=== PATIENT | male | born 1995 | race Caucasian/White ===

== ENCOUNTER 2017-07-31 11:25 | Emergency (ER) | payer OTHER ==
--- NOTE | 2017-07-31 11:53 | EDPHY ---
H & P Smoking Status: Never smoked Time Seen by Provider: 07/31/17 11:40 HPI/ROS: CHIEF COMPLAINT: Right wrist pain HISTORY OF PRESENT ILLNESS: 21 year old male, right-hand dominant, up-to-date tetanus states that last evening while skateboarding he fell on outstretched right hand. Complaining of reproducible pain to his right wrist ever since. No paresthesia. No proximal pain. PHYSICAL EXAM (Prior to examination, patient consented to physical exam, hands were washed and my usual and customary physical exam procedures followed) 1) GENERAL: Well-developed, well-nourished, alert and oriented. Appears to be in no acute distress. 2) HEAD: Normocephalic 3) HEENT: Pupils equal, round, reactive to light bilaterally. 4) LUNGS: Breathing comfortably. 5) MUSCULOSKELETAL: Soft compartments. Normal coloration. 6) SKIN: Abrasion palmar aspect. 7) VASCULAR: pulses and cap refill present are brisk 8) NEUROLOGIC: Unable to assess radial ulnar median nerve function as patient complains of pain with range of motion of his fingers. DIFFERENTIAL DIAGNOSIS: in no particular order including but not limited to fracture, sprain, compartment syndrome Procedure: Splint A volar Velcro splint was applied by ER missile and missile checkout technician. After application of the splint I returned and re-examined the patient. The splint was adequately immobilizing the joint and distal to the splint the patient's circulation and sensation were intact. Patient shows no signs of compartment syndrome. Was given orthopedic precautions. (Kemar John Zoila) Constitutional: Initial Vital Signs Temperature (C) 36.8 C 07/31/17 11:32 Heart Rate 75 07/31/17 11:32 Respiratory Rate 16 07/31/17 11:32 Blood Pressure 135/82 H 07/31/17 11:32 O2 Sat (%) 98 07/31/17 11:32 O2 Delivery Mode Room Air Allergies/Adverse Reactions: No Known Allergies Allergy (Unverified 07/31/17 11:32) Home Medications: Medication Instructions Recorded NK [No Known Home Meds] 07/31/17 MDM/Departure - MDM Imaging Results: Imaging Impressions Wrist X-Ray 07/31/17 11:35 Impression: Normal. If there is a high clinical concern regarding an occult fracture, conservative management and short-term repeat radiographic follow-up in 7-14 days is suggested. Findings were discussed with Ramses John PA-C at 12:19, on 07/31/2017, who indicated that the patient's point of maximal tenderness was not over the anatomic snuff box, but moreso over the central aspect of the wrist. images reviewed by myself (Kemar John) ED Course/Re-evaluation: Care of patient under supervision of secondary supervising physician Dr Barahona . (Kemar John) I did not see this patient while he was in the emergency department. However his care was discussed with the PA while the patient was in the department. I agree with treatment plan and management. I a.m. the secondary supervising position (Eliu Barahona) - Depart Disposition: Home, Routine, Self-Care Clinical Impression: Right wrist sprain Qualifiers: Encounter type: initial encounter Qualified Code(s): S63.501A - Unspecified sprain of right wrist, initial encounter Abrasion of right hand Qualifiers: Encounter type: initial encounter Qualified Code(s): S60.511A - Abrasion of right hand, initial encounter Condition: Good Instructions: Abrasion (ED), Wrist Sprain (ED) Additional Instructions: Return to the ER immediately if you experience discoloration, have worsening pain, numbness, tingling, or any other symptoms that concern you. If you received x-rays in the emergency department today, be advised, that ligamentous , tendon, muscular, and other non-bony injury cannot be fully ruled out. Try to keep your affected extremity elevated above the level of your chest, and keep cold packs on the affected area, for the next 48 hours. Referrals: Nadya Win MD [Medical Doctor] - 2-3 days, call for appt. (Dr. Win is an orthopedic doctor)
[2017-07-31 13:00] VITALS: BP 125/75; PULSE 60; RESP 12; TEMP 97.9; O2SAT 95
== END 2017-07-31 12:58 | disposition home or self-care (01) ==
DX: S63.501A Unspecified sprain of right wrist, initial encounter (principal); S60.511A Abrasion of right hand, initial encounter; V00.131A Fall from skateboard, initial encounter; Y99.8 Other external cause status; Y93.51 Activity, roller skating (inline) and skateboarding
CPT/HCPCS: L3908